=== PATIENT | female | born 2000 | race Caucasian/White ===

== ENCOUNTER → 2025-06-01 | Outpatient (CLI) | payer BC ==
--- NOTE | 2025-06-01 08:49 | US ---
EXAMINATION TYPE: US abdomen complete DATE OF EXAM: 06/01/2025 COMPARISON: NONE CLINICAL INDICATION: Female, 24 years old with history of R10.11 RUQ PAIN; RUQ pain x 2 weeks, large habitus TECHNIQUE: Grayscale and color Doppler imaging of the abdomen was performed. FINDINGS: EXAM MEASUREMENTS: Liver Length: 17.0 cm Gallbladder Wall: 0.2 cm CBD: 0.6 cm, color Doppler imaging was utilized to isolate the common bile duct for measurement. 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 Liver is diffusely hyperechoic and difficult to pe netrate. No focal lesion. Wall echo shadow sign meaning the gallbladder is filled with gallstones. No wall thickening or surrounding fluid. Negative sonographic Chahal sign. Common bile duct is within n ormal limits. Spleen is at the upper limits of normal for size. Both kidneys demonstrate no hydroneph rosis, shadowing calculus or solid mass. The visualized upper SVC and abdominal aorta are within norm al lives. IMPRESSION: 1. Gallbladder is full of gallstones without evidence of acute cholecystitis. 2. Hepatic steatosis. [facility], , 06/01/2025 8:47 AM
== END | disposition home or self-care (01) ==
LOC: RADUSWWP 07:56
PROVIDERS: ATTEND Family Medicine
DX: K80.20 Calculus of gallbladder without cholecystitis without obstruction (principal); K76.0 Fatty (change of) liver, not elsewhere classified
CPT/HCPCS: 76700